=== PATIENT | male | born 1960 | race Caucasian/White ===

== ENCOUNTER 2021-11-05 22:58 | Inpatient (IN) | payer MEDICARE ==
[2021-11-06] MEDS ORDERED: Enoxaparin Sodium 100 MG/ML SYRINGE ONE (00:21)
[2021-11-06] MEDS ORDERED: Morphine 4 MG/ML VIAL ONE (00:21)
[2021-11-06] MEDS ORDERED: Ondansetron PF 4 MG/2 ML Vial ONE (00:21)
[2021-11-06] MEDS ORDERED: Cefepime 2 GM VIAL ONE (00:21)
[2021-11-06 00:43] LABS: #Basophils 0.1 10x3/uL (0.0-0.2); #Eosinphils 0.4 10x3/uL (0.0-0.5); #Monocytes 0.5 10x3/uL (0.0-1.1); #Neutrophils 6.3 10x3/uL (1.5-8.4); %Basophils 0.7 % (0.0-2.0); %Eosinophils 3.8 % (0.0-6.0); %Lymphocytes 20.1 % (18.0-47.0); %Monocytes 5.7 % (0.0-10.0); %Neutrophils 69.2 % (40.0-75.0); Hemoglobin 13.6 g/dL (13.5-17.5); Mean Corpuscular HGB CONC 34.8 g/dL (32.0-36.0); Mean Corpuscular Hemoglobin 30.6 pg (27.0-33.0); Mean Corpuscular Volume 87.9 fl (81.2-95.1); Mean Platelet Volume 8.3 fl (7.4-10.4); Platelet Count 364 10x3/uL (150-450); RBC Distribution Width 11.6 % (11.5-14.5); Red Blood Cell (RBC) Count 4.45 10x6/uL (4.32-5.72); White Blood Cell (WBC) Count 9.1 10x3/uL (3.5-10.5)
[2021-11-06] MEDS ORDERED: Fluconazole 100 MG TAB PO SCH (00:45)
[2021-11-06 00:54] LABS: ALT (SGPT) 21 U/L (8-55); AST (SGOT) 21 U/L (5-34); Albumin 4.1 g/dL (3.4-4.8); Alkaline Phosphatase 120 U/L (40-110); Anion Gap 14 mmol/L (10-20); BUN (Urea Nitrogen) 23 mg/dL (8.4-25.7); Bilirubin, Total 0.3 mg/dL (0.2-1.2); Calc. Creatinine Clearance 0 mL/min (70-130); Calcium 8.6 mg/dL (7.8-10.44); Carbon Dioxide 22 mmol/L (23-31); Chloride 101 mmol/L (98-107); Globulin 3.6 g/dL (2.4-3.5); Glucose 116 mg/dL (80-115); Potassium 3.7 mmol/L (3.5-5.1); Protein, Total 7.7 g/dL (5.8-8.1); Sodium 133 mmol/L (136-145)
[2021-11-06] MEDS ORDERED: Guaifenesin DM 100-10/5 ML UDCUP PO PRN (02:27)
[2021-11-06] MEDS ORDERED: Calcium Carbonate 500 MG ChewTAB PO PRN (02:27)
[2021-11-06] MEDS ORDERED: Ondansetron PF 4 MG/2 ML Vial IVP PRN (02:27)
[2021-11-06 03:08] VITALS: BMI 50.7
[2021-11-06] MEDS: HYDROcodone/Acetaminophen 10/325 mg Tablet PO PRN (03:18)
[2021-11-06] MEDS ORDERED: Morphine 4 MG/ML VIAL SLOW IVP SCH (04:00)
[2021-11-06 05:02] LABS: #Basophils 0.1 10x3/uL (0.0-0.2); #Eosinphils 0.4 10x3/uL (0.0-0.5); #Monocytes 0.7 10x3/uL (0.0-1.1); #Neutrophils 5.6 10x3/uL (1.5-8.4); %Basophils 0.5 % (0.0-2.0); %Eosinophils 4.7 % (0.0-6.0); %Lymphocytes 25.2 % (18.0-47.0); %Monocytes 7.6 % (0.0-10.0); %Neutrophils 61.5 % (40.0-75.0); Hemoglobin 12.8 g/dL (13.5-17.5); Mean Corpuscular Hemoglobin 29.4 pg (27.0-33.0); Mean Corpuscular Volume 89.2 fl (81.2-95.1); Mean Platelet Volume 8.4 fl (7.4-10.4); Platelet Count 357 10x3/uL (150-450); RBC Distribution Width 11.4 % (11.5-14.5); Red Blood Cell (RBC) Count 4.35 10x6/uL (4.32-5.72); White Blood Cell (WBC) Count 9.1 10x3/uL (3.5-10.5)
[2021-11-06 05:50] LABS: Anion Gap 13 mmol/L (10-20); BUN (Urea Nitrogen) 22 mg/dL (8.4-25.7); CRP (Inflammatory) 0.88 mg/dL (= or < 0.5); Calc. Creatinine Clearance 170 mL/min (70-130); Calcium 8.6 mg/dL (7.8-10.44); Carbon Dioxide 25 mmol/L (23-31); Chloride 102 mmol/L (98-107); Glucose 89 mg/dL (80-115); Potassium 4.1 mmol/L (3.5-5.1); Sodium 136 mmol/L (136-145)
[2021-11-06] MEDS: Senokot S 8.6-50 MG TAB PO SCH ×2 (07:52→20:23)
[2021-11-06] MEDS: Gabapentin 400 MG CAP PO SCH ×3 (07:53→20:22)
[2021-11-06] MEDS: Tamsulosin HCl 0.4 MG CAP PO SCH (07:54)
[2021-11-06] MEDS: Oxybutynin 5 MG TAB PO SCH (07:54)
[2021-11-06] MEDS: Torsemide 20 MG TAB PO SCH (07:56)
[2021-11-06] MEDS: Lisinopril 10 MG TAB PO SCH (07:56)
[2021-11-06] MEDS: Amlodipine 5 MG TAB PO SCH (07:56)
[2021-11-06] MEDS: Nystatin Powder 15 GM BOT TOP SCH ×2 (08:28→20:25)
[2021-11-06] MEDS: Morphine 4 MG/ML VIAL SLOW IVP PRN ×2 (10:56→16:51)
[2021-11-06] MEDS: hydrOXYzine 25 MG TAB PO PRN ×2 (10:56→20:23)
[2021-11-06] MEDS: Apixaban 5 MG TAB PO SCH (12:14)
[2021-11-06] MEDS: Cefepime 1 GM in Sodium Chloride 0.9% 100 ML IVPB SCH (12:14)
[2021-11-06 12:25] LABS: Hemoglobin A1c 5.1 % (4.0-6.0)
[2021-11-06] MEDS: VANCOMYCIN 2 GRAM/400 ML BAG 2 GM in Premix Bag 1 BAG IVPB SCH (13:10)
[2021-11-06 19:01] LABS: SARS-CoV-2 PCR by NAA Not Detected (NotDetected)
[2021-11-07] MEDS: Apixaban 5 MG TAB PO SCH ×2 (00:01→13:07)
[2021-11-07] MEDS: Morphine 4 MG/ML VIAL SLOW IVP PRN ×2 (00:01→21:02)
[2021-11-07] MEDS: Cefepime 1 GM in Sodium Chloride 0.9% 100 ML IVPB SCH ×3 (00:02→13:35)
[2021-11-07] MEDS: HYDROcodone/Acetaminophen 10/325 mg Tablet PO PRN ×3 (01:08→14:45)
[2021-11-07] MEDS: VANCOMYCIN 2 GRAM/400 ML BAG 2 GM in Premix Bag 1 BAG IVPB SCH ×2 (01:09→13:07)
[2021-11-07 04:15] LABS: Anion Gap 13 mmol/L (10-20); BUN (Urea Nitrogen) 18 mg/dL (8.4-25.7); Calc. Creatinine Clearance 131 mL/min (70-130); Calcium 8.5 mg/dL (7.8-10.44); Carbon Dioxide 24 mmol/L (23-31); Chloride 104 mmol/L (98-107); Glucose 117 mg/dL (80-115); Sodium 137 mmol/L (136-145)
[2021-11-07 04:30] LABS: #Eosinphils 0.3 10x3/uL (0.0-0.5); #Monocytes 0.6 10x3/uL (0.0-1.1); #Neutrophils 3.8 10x3/uL (1.5-8.4); %Basophils 0.5 % (0.0-2.0); %Eosinophils 4.6 % (0.0-6.0); %Lymphocytes 26.2 % (18.0-47.0); %Monocytes 9.1 % (0.0-10.0); %Neutrophils 59.1 % (40.0-75.0); Hemoglobin 13.3 g/dL (13.5-17.5); Mean Corpuscular HGB CONC 34.4 g/dL (32.0-36.0); Mean Corpuscular Hemoglobin 30.6 pg (27.0-33.0); Mean Corpuscular Volume 89.2 fl (81.2-95.1); Mean Platelet Volume 8.4 fl (7.4-10.4); Platelet Count 345 10x3/uL (150-450); RBC Distribution Width 11.6 % (11.5-14.5); Red Blood Cell (RBC) Count 4.34 10x6/uL (4.32-5.72); White Blood Cell (WBC) Count 6.4 10x3/uL (3.5-10.5)
[2021-11-07] MEDS: Oxybutynin 5 MG TAB PO SCH (08:26)
[2021-11-07] MEDS: Senokot S 8.6-50 MG TAB PO SCH ×2 (08:27→20:55)
[2021-11-07] MEDS: Tamsulosin HCl 0.4 MG CAP PO SCH (08:27)
[2021-11-07] MEDS: Nystatin Powder 15 GM BOT TOP SCH ×2 (08:27→20:55)
[2021-11-07] MEDS: Gabapentin 400 MG CAP PO SCH ×3 (08:37→20:51)
[2021-11-07] MEDS: Amlodipine 5 MG TAB PO SCH (08:37)
[2021-11-07] MEDS: Lisinopril 10 MG TAB PO SCH (08:38)
[2021-11-07] MEDS ORDERED: FLU VACC QS2021-22(6MOS UP)/PF 60 MCG/0.5 ML SYRINGE IM ONE (09:00)
[2021-11-07] MEDS: Torsemide 20 MG TAB PO SCH (10:38)
[2021-11-07] MEDS: Cefepime 2 GM in Sodium Chloride 0.9% 100 ML IVPB SCH (13:33)
[2021-11-08] MEDS: Cefepime 2 GM in Sodium Chloride 0.9% 100 ML IVPB SCH ×2 (01:22→13:09)
[2021-11-08] MEDS: VANCOMYCIN 2 GRAM/400 ML BAG 2 GM in Premix Bag 1 BAG IVPB SCH (01:23)
[2021-11-08] MEDS: Apixaban 5 MG TAB PO SCH ×2 (01:23→13:11)
[2021-11-08 01:26] LABS: Vancomycin, Trough 33.6 ug/mL
[2021-11-08 05:49] LABS: #Basophils 0.1 10x3/uL (0.0-0.2); #Eosinphils 0.5 10x3/uL (0.0-0.5); #Monocytes 0.8 10x3/uL (0.0-1.1); #Neutrophils 5.9 10x3/uL (1.5-8.4); %Basophils 0.7 % (0.0-2.0); %Lymphocytes 20.2 % (18.0-47.0); %Monocytes 8.4 % (0.0-10.0); %Neutrophils 65.3 % (40.0-75.0); Hemoglobin 14.2 g/dL (13.5-17.5); Mean Corpuscular Hemoglobin 30.8 pg (27.0-33.0); Mean Corpuscular Volume 88.1 fl (81.2-95.1); Mean Platelet Volume 8.2 fl (7.4-10.4); Platelet Count 352 10x3/uL (150-450); RBC Distribution Width 11.7 % (11.5-14.5); Red Blood Cell (RBC) Count 4.61 10x6/uL (4.32-5.72); White Blood Cell (WBC) Count 9.1 10x3/uL (3.5-10.5)
[2021-11-08 06:05] LABS: Anion Gap 11 mmol/L (10-20); BUN (Urea Nitrogen) 19 mg/dL (8.4-25.7); Calc. Creatinine Clearance 154 mL/min (70-130); Calcium 8.8 mg/dL (7.8-10.44); Carbon Dioxide 25 mmol/L (23-31); Chloride 106 mmol/L (98-107); Glucose 95 mg/dL (80-115); Phosphorus 2.6 mg/dL (2.3-4.7); Sodium 138 mmol/L (136-145)
[2021-11-08] MEDS: Oxybutynin 5 MG TAB PO SCH (08:47)
[2021-11-08] MEDS: Torsemide 20 MG TAB PO SCH (08:47)
[2021-11-08] MEDS: Amlodipine 5 MG TAB PO SCH (08:48)
[2021-11-08] MEDS: Tamsulosin HCl 0.4 MG CAP PO SCH (08:49)
[2021-11-08] MEDS: Lisinopril 10 MG TAB PO SCH (08:50)
[2021-11-08] MEDS: Senokot S 8.6-50 MG TAB PO SCH ×2 (08:50→20:13)
[2021-11-08] MEDS: Gabapentin 400 MG CAP PO SCH ×3 (08:51→20:13)
[2021-11-08] MEDS: Nystatin Powder 15 GM BOT TOP SCH ×2 (08:52→20:15)
[2021-11-08] MEDS: HYDROcodone/Acetaminophen 10/325 mg Tablet PO PRN ×2 (08:58→14:56)
[2021-11-08] MEDS ORDERED: ADMIXTURE FEE IVPB SCH (10:15)
[2021-11-08] MEDS ORDERED: VANCOMYCIN IVPB SCH (10:15)
[2021-11-08] MEDS: Morphine 4 MG/ML VIAL SLOW IVP PRN (18:03)
[2021-11-09] MEDS: Morphine 4 MG/ML VIAL SLOW IVP PRN ×4 (00:05→22:07)
[2021-11-09] MEDS: Apixaban 5 MG TAB PO SCH ×2 (00:24→13:46)
[2021-11-09] MEDS: ceFAZolin 2 GM/Dextrose 50 ML 2 GM in Premix Bag 1 BAG IVPB SCH ×3 (00:25→16:06)
[2021-11-09] MEDS: hydrOXYzine 25 MG TAB PO PRN (03:25)
[2021-11-09] MEDS: Oxybutynin 5 MG TAB PO SCH (09:31)
[2021-11-09] MEDS: Lisinopril 10 MG TAB PO SCH (09:31)
[2021-11-09] MEDS: Tamsulosin HCl 0.4 MG CAP PO SCH (09:32)
[2021-11-09] MEDS: Torsemide 20 MG TAB PO SCH (09:32)
[2021-11-09] MEDS: Senokot S 8.6-50 MG TAB PO SCH ×2 (09:33→20:44)
[2021-11-09] MEDS: Amlodipine 5 MG TAB PO SCH (09:33)
[2021-11-09] MEDS: Gabapentin 400 MG CAP PO SCH ×3 (09:34→20:36)
[2021-11-09] MEDS: Nystatin Powder 15 GM BOT TOP SCH ×2 (16:23→20:36)
[2021-11-10] MEDS: Apixaban 5 MG TAB PO SCH ×2 (01:17→14:10)
[2021-11-10] MEDS: ceFAZolin 2 GM/Dextrose 50 ML 2 GM in Premix Bag 1 BAG IVPB SCH ×2 (01:18→09:40)
[2021-11-10] MEDS: hydrOXYzine 25 MG TAB PO PRN ×2 (01:25→10:03)
[2021-11-10] MEDS: Morphine 4 MG/ML VIAL SLOW IVP PRN (09:35)
[2021-11-10] MEDS: Gabapentin 400 MG CAP PO SCH ×2 (09:36→14:09)
[2021-11-10] MEDS: Amlodipine 5 MG TAB PO SCH (09:37)
[2021-11-10] MEDS: Lisinopril 10 MG TAB PO SCH (09:37)
[2021-11-10] MEDS: Oxybutynin 5 MG TAB PO SCH (09:39)
[2021-11-10] MEDS: Senokot S 8.6-50 MG TAB PO SCH (09:39)
[2021-11-10] MEDS: Torsemide 20 MG TAB PO SCH (09:40)
[2021-11-10] MEDS: Nystatin Powder 15 GM BOT TOP SCH (09:40)
[2021-11-10] MEDS: Tamsulosin HCl 0.4 MG CAP PO SCH (10:03)
[2021-11-10 16:32] VITALS: BP 115/65; TEMP 97.9
[2021-11-14] MEDS ORDERED: Apixaban 5 MG TAB PO SCH (09:00)
== END 2021-11-10 18:18 | disposition home or self-care (01) | DRG 300 ==
LOC: CSHERS 22:58 → OBSVTOIN 11-06 03:00 → CSHTELE 11-06 03:00
PROVIDERS: ADMIT Student in an Organized Health Care Education/Training Program; ATTEND Family Medicine
DX: I82.403 Acute embolism and thrombosis of unspecified deep veins of lower extremity, bilateral (principal); L03.115 Cellulitis of right lower limb; I48.20 Chronic atrial fibrillation, unspecified; Z68.43 Body mass index [BMI] 50.0-59.9, adult; Z20.822 Contact with and (suspected) exposure to COVID-19; I10 Essential (primary) hypertension; G89.0 Central pain syndrome; N40.0 Benign prostatic hyperplasia without lower urinary tract symptoms; N32.81 Overactive bladder; G47.33 Obstructive sleep apnea (adult) (pediatric); I89.0 Lymphedema, not elsewhere classified; I87.2 Venous insufficiency (chronic) (peripheral); E66.01 Morbid (severe) obesity due to excess calories; Z88.8 Allergy status to other drugs, medicaments and biological substances; Z79.01 Long term (current) use of anticoagulants; Z79.899 Other long term (current) drug therapy; Z98.890 Other specified postprocedural states; Z87.39 Personal history of other diseases of the musculoskeletal system and connective tissue
CPT/HCPCS: 36415; 36416; 80048; 80053; 80202; 83036; 83605; 83735; 84100; 84145; 85025; 85652; 86140; 87040; 87081; 93923; 96365; 96368; 96372; 96375; J0690; J0692; J1650; J2270; J2405; J3370; J3490; U0003; U0005

== ENCOUNTER 2022-01-16 21:40 | Inpatient (IN) | payer MEDICARE, OTHER ==
[2022-01-16 22:33] LABS: #Eosinphils 0.1 10x3/uL (0.0-0.5); #Monocytes 0.6 10x3/uL (0.0-1.1); #Neutrophils 11.7 10x3/uL (1.5-8.4); %Basophils 0.3 % (0.0-2.0); %Eosinophils 0.5 % (0.0-6.0); %Lymphocytes 4.6 % (18.0-47.0); %Monocytes 4.7 % (0.0-10.0); %Neutrophils 89.4 % (40.0-75.0); Hemoglobin 12.4 g/dL (13.5-17.5); Mean Corpuscular HGB CONC 33.1 g/dL (32.0-36.0); Mean Corpuscular Volume 90.8 fl (81.2-95.1); Mean Platelet Volume 8.3 fl (7.4-10.4); Platelet Count 285 10x3/uL (150-450); Red Blood Cell (RBC) Count 4.13 10x6/uL (4.32-5.72); White Blood Cell (WBC) Count 13.1 10x3/uL (3.5-10.5)
[2022-01-16 22:54] LABS: ALT (SGPT) 8 U/L (8-55); AST (SGOT) 14 U/L (5-34); Albumin 4.3 g/dL (3.4-4.8); Alkaline Phosphatase 101 U/L (40-110); Anion Gap 13 mmol/L (10-20); BUN (Urea Nitrogen) 22 mg/dL (8.4-25.7); Bilirubin, Total 0.8 mg/dL (0.2-1.2); Calc. Creatinine Clearance 0 mL/min (70-130); Carbon Dioxide 21 mmol/L (23-31); Chloride 109 mmol/L (98-107); Glucose 109 mg/dL (80-115); Lipase 9 U/L (8-78); Magnesium 1.8 mg/dL (1.6-2.6); Potassium 4.5 mmol/L (3.5-5.1); Protein, Total 7.3 g/dL (5.8-8.1); Sodium 138 mmol/L (136-145)
[2022-01-16] MEDS ORDERED: Ondansetron PF 4 MG/2 ML Vial ONE (23:52)
[2022-01-16] MEDS ORDERED: Piperacillin/Tazobactam 3.375 GM VIAL ONE (23:52)
[2022-01-16] MEDS ORDERED: Morphine 4 MG/ML VIAL ONE (23:52)
[2022-01-17] MEDS ORDERED: Enoxaparin Sodium 60 MG/0.6 ML SYRINGE ONE (00:14)
[2022-01-17] MEDS ORDERED: Acetaminophen 500 MG TAB ONE (00:16)
[2022-01-17 00:36] LABS: SARS-CoV-2 NAA Rapid Test Not Detected (NotDetected)
[2022-01-17 00:47] LABS: Bilirubin Neg (Negative); Blood, Urine 50 (Negative); Clarity Clear (Clear); Glucose, Urine (Dipstick) Normal (Negative); Ketone, Urine Negative (Negative); Leukocyte Negative (Negative); Nitrite Negative (Negative); Protein, Urine (Dipstick) Negative (Neg-Trace); Specific Gravity, Urine 1.015 (1.002-1.036); Urobilinogen Normal mg/dL (Less than 2)
[2022-01-17 00:53] LABS: Bacteria/HPF Rare-Few HPF (None Seen); Squamous Epithelial 0-3 HPF (0-3)
[2022-01-17] MEDS ORDERED: Morphine 4 MG/ML VIAL ONE (03:13)
[2022-01-17] MEDS ORDERED: Senokot S 8.6-50 MG TAB PO PRN (05:07)
[2022-01-17] MEDS ORDERED: Calcium Carbonate 500 MG ChewTAB PO PRN (05:07)
[2022-01-17] MEDS ORDERED: Guaifenesin DM 100-10/5 ML UDCUP PO PRN (05:07)
[2022-01-17] MEDS ORDERED: HYDROcodone/Acetaminophen 5/325 mg Tablet PO PRN (05:07)
[2022-01-17] MEDS ORDERED: Ondansetron PF 4 MG/2 ML Vial IVP PRN (05:07)
[2022-01-17] MEDS: Doxycycline 100 MG in Sodium Chloride 0.9% 100 ML IVPB SCH (06:30)
[2022-01-17 06:48] VITALS: BMI 53.5
[2022-01-17 07:01] LABS: CKMB 9.5 ng/mL (0-6.6)
[2022-01-17] MEDS ORDERED: Cefepime 2 GM VIAL ONE (08:50)
[2022-01-17] MEDS: Amlodipine 10 MG TAB PO SCH (08:57)
[2022-01-17] MEDS: Lisinopril 10 MG TAB PO SCH (08:58)
[2022-01-17] MEDS: Gabapentin 400 MG CAP PO SCH ×3 (08:59→20:29)
[2022-01-17] MEDS: Famotidine 20 MG TAB PO SCH ×2 (09:00→20:29)
[2022-01-17] MEDS: Oxybutynin 5 MG TAB PO SCH ×2 (09:01→20:29)
[2022-01-17] MEDS: Torsemide 20 MG TAB PO SCH (09:01)
[2022-01-17] MEDS: Nystatin Powder 15 GM BOT TOP SCH ×2 (09:02→20:37)
[2022-01-17] MEDS: Cefepime 2 GM in Sodium Chloride 0.9% 100 ML IVPB SCH ×2 (09:21→20:30)
[2022-01-17] MEDS: Linezolid 600 MG in Premix Bag 1 BAG IVPB SCH ×2 (09:21→20:37)
[2022-01-17] MEDS ORDERED: Iopamidol 370 76% 100 ML VIAL ONE (09:34)
[2022-01-17] MEDS ORDERED: HYDROmorphone 2 MG TAB PO SCH (11:15)
[2022-01-17 12:48] LABS: Legionella Urinary Ag Negative (Negative); Strep pneumo Urine Ag NEGATIVE (NEGATIVE)
[2022-01-17] MEDS: Morphine 4 MG/ML VIAL SLOW IVP PRN ×3 (15:17→23:42)
[2022-01-17] MEDS: Enoxaparin Sodium 80 MG/0.8 ML SYRINGE SC SCH (15:18)
[2022-01-17] MEDS ORDERED: TIZANIDINE HCL PO PRN ×2 (16:04→16:13)
[2022-01-17] MEDS: Acetaminophen 325 MG TAB PO PRN (16:20)
[2022-01-17] MEDS ORDERED: TIZANIDINE HCL 4 MG PO SCH (18:00)
[2022-01-17] MEDS: Tamsulosin HCl 0.4 MG CAP PO SCH (20:30)
[2022-01-17] MEDS ORDERED: Metoprolol Tartrate 25 MG TAB PO SCH (21:00)
[2022-01-18] MEDS: Acetaminophen 325 MG TAB PO PRN ×2 (01:19→09:48)
[2022-01-18] MEDS: Enoxaparin Sodium 80 MG/0.8 ML SYRINGE SC SCH ×2 (03:18→14:05)
[2022-01-18] MEDS: Morphine 4 MG/ML VIAL SLOW IVP PRN ×5 (04:17→21:43)
[2022-01-18 05:16] LABS: INR-International Normal Ratio 1.2; PTT 54.4 sec (22.0-33.0)
[2022-01-18 05:20] LABS: ALT (SGPT) 15 U/L (8-55); AST (SGOT) 31 U/L (5-34); Albumin 3.5 g/dL (3.4-4.8); Alkaline Phosphatase 73 U/L (40-110); Anion Gap 14 mmol/L (10-20); BUN (Urea Nitrogen) 13 mg/dL (8.4-25.7); Bilirubin, Direct 0.5 mg/dL (0.1-0.3); Bilirubin, Total 0.8 mg/dL (0.2-1.2); Calc. Creatinine Clearance 148 mL/min (70-130); Calcium 8.5 mg/dL (7.8-10.44); Carbon Dioxide 21 mmol/L (23-31); Cardiac Risk 2.5 (Less than 4.5); Chloride 105 mmol/L (98-107); Cholesterol 97 mg/dl (< 200 Desired); Glucose 103 mg/dL (80-115); HDL Cholesterol 39 mg/dL (>60 Neg Risk); LDL Cholesterol, Calculated 46 mg/dL; Magnesium 1.6 mg/dL (1.6-2.6); Potassium 3.4 mmol/L (3.5-5.1); Protein, Total 6.5 g/dL (5.8-8.1); Sodium 137 mmol/L (136-145); Triglycerides 62 mg/dL (Less than 150)
[2022-01-18 06:03] LABS: #Eosinphils 0.1 10x3/uL (0.0-0.5); #Monocytes 0.8 10x3/uL (0.0-1.1); #Neutrophils 6.8 10x3/uL (1.5-8.4); %Basophils 0.4 % (0.0-2.0); %Eosinophils 1.3 % (0.0-6.0); %Lymphocytes 12.9 % (18.0-47.0); %Monocytes 8.4 % (0.0-10.0); %Neutrophils 76.6 % (40.0-75.0); Hemoglobin 11.7 g/dL (13.5-17.5); Mean Corpuscular HGB CONC 34.6 g/dL (32.0-36.0); Mean Corpuscular Hemoglobin 29.8 pg (27.0-33.0); Mean Platelet Volume 8.6 fl (7.4-10.4); Platelet Count 228 10x3/uL (150-450); RBC Distribution Width 12.7 % (11.5-14.5); Red Blood Cell (RBC) Count 3.93 10x6/uL (4.32-5.72); White Blood Cell (WBC) Count 8.9 10x3/uL (3.5-10.5)
[2022-01-18] MEDS ORDERED: Potassium Chloride 20 MEQ TAB PO SCH (07:30)
[2022-01-18] MEDS: Amlodipine 10 MG TAB PO SCH (09:45)
[2022-01-18] MEDS: Cefepime 2 GM in Sodium Chloride 0.9% 100 ML IVPB SCH ×2 (09:45→21:37)
[2022-01-18] MEDS: Linezolid 600 MG in Premix Bag 1 BAG IVPB SCH ×2 (09:46→21:45)
[2022-01-18] MEDS: Gabapentin 400 MG CAP PO SCH ×3 (09:46→21:44)
[2022-01-18] MEDS: Famotidine 20 MG TAB PO SCH ×2 (09:46→21:45)
[2022-01-18] MEDS: Lisinopril 10 MG TAB PO SCH (09:47)
[2022-01-18] MEDS: Torsemide 20 MG TAB PO SCH (09:47)
[2022-01-18] MEDS: Nystatin Powder 15 GM BOT TOP SCH ×2 (09:47→21:51)
[2022-01-18] MEDS: Oxybutynin 5 MG TAB PO SCH ×2 (09:47→21:44)
[2022-01-18] MEDS ORDERED: HYDROmorphone 0.5 MG/0.5 ML SYRINGE SLOW IVP PRN (12:42)
[2022-01-18] MEDS: Tamsulosin HCl 0.4 MG CAP PO SCH (21:44)
[2022-01-18] MEDS: HYDROcodone/Acetaminophen 10/325 mg Tablet PO PRN (22:54)
[2022-01-19] MEDS: Acetaminophen 325 MG TAB PO PRN ×3 (00:39→18:10)
[2022-01-19] MEDS: Morphine 4 MG/ML VIAL SLOW IVP PRN ×6 (02:11→22:37)
[2022-01-19] MEDS: HYDROcodone/Acetaminophen 10/325 mg Tablet PO PRN ×4 (03:07→21:00)
[2022-01-19] MEDS: Enoxaparin Sodium 80 MG/0.8 ML SYRINGE SC SCH ×2 (03:13→14:46)
[2022-01-19 05:28] LABS: #Eosinphils 0.2 10x3/uL (0.0-0.5); #Neutrophils 7.1 10x3/uL (1.5-8.4); %Basophils 0.4 % (0.0-2.0); %Eosinophils 2.4 % (0.0-6.0); %Lymphocytes 14.3 % (18.0-47.0); %Monocytes 9.9 % (0.0-10.0); %Neutrophils 72.6 % (40.0-75.0); Hemoglobin 12.3 g/dL (13.5-17.5); Mean Corpuscular HGB CONC 35.3 g/dL (32.0-36.0); Mean Corpuscular Hemoglobin 29.9 pg (27.0-33.0); Mean Corpuscular Volume 84.5 fl (81.2-95.1); Mean Platelet Volume 8.9 fl (7.4-10.4); Platelet Count 244 10x3/uL (150-450); RBC Distribution Width 12.6 % (11.5-14.5); Red Blood Cell (RBC) Count 4.12 10x6/uL (4.32-5.72); White Blood Cell (WBC) Count 9.8 10x3/uL (3.5-10.5)
[2022-01-19 05:36] LABS: Anion Gap 14 mmol/L (10-20); BUN (Urea Nitrogen) 14 mg/dL (8.4-25.7); Calc. Creatinine Clearance 162 mL/min (70-130); Calcium 8.5 mg/dL (7.8-10.44); Carbon Dioxide 25 mmol/L (23-31); Chloride 99 mmol/L (98-107); Glucose 101 mg/dL (80-115); Magnesium 1.7 mg/dL (1.6-2.6); Potassium 3.3 mmol/L (3.5-5.1); Sodium 135 mmol/L (136-145)
[2022-01-19] MEDS ORDERED: Potassium Chloride 40 MEQ in Premix Bag 1 BAG IVPB SCH (07:15)
[2022-01-19] MEDS ORDERED: Potassium Chloride 20 MEQ in Premix Bag 1 BAG IVPB SCH (08:00)
[2022-01-19] MEDS ORDERED: Potassium Chloride 20 MEQ TAB PO SCH (08:00)
[2022-01-19] MEDS: Magnesium 2 GM/50 ML(in water) 2 GM in Premix Bag 1 BAG IVPB SCH ×2 (08:24→09:50)
[2022-01-19] MEDS: Gabapentin 400 MG CAP PO SCH ×3 (08:25→20:27)
[2022-01-19] MEDS: Cefepime 2 GM in Sodium Chloride 0.9% 100 ML IVPB SCH ×2 (08:25→20:28)
[2022-01-19] MEDS: Amlodipine 10 MG TAB PO SCH (08:25)
[2022-01-19] MEDS: Famotidine 20 MG TAB PO SCH ×2 (08:25→20:28)
[2022-01-19] MEDS: Oxybutynin 5 MG TAB PO SCH ×2 (08:27→20:28)
[2022-01-19] MEDS: Lisinopril 10 MG TAB PO SCH (08:27)
[2022-01-19] MEDS: Torsemide 20 MG TAB PO SCH (08:35)
[2022-01-19] MEDS: Linezolid 600 MG in Premix Bag 1 BAG IVPB SCH ×2 (09:50→20:28)
[2022-01-19 12:31] LABS: Troponin I 0.011 ng/mL (< 0.028)
[2022-01-19 12:38] LABS: Puncture Site Other Site; pH (venous) 7.46 (7.32-7.43)
[2022-01-19 12:39] LABS: Actual Bicarbonate (HCO3v) 29 mEq/L (22-28); Base Excess 4.4 mEq/L (-2.0 to +3.0); Calcium, Ionized (venous) 1.03 mmol/L (1.16-1.32); Chloride (VBG) 97 mmol/L (98-106); Potassium (VBG) 3.47 mmol/L (3.70-5.30); RapidComm Collect By CBN; Sodium 131.6 mmol/L (133-146)
[2022-01-19] MEDS: Nystatin Powder 15 GM BOT TOP SCH ×2 (13:27→20:31)
[2022-01-19] MEDS: Tamsulosin HCl 0.4 MG CAP PO SCH (20:27)
[2022-01-20] MEDS: Morphine 4 MG/ML VIAL SLOW IVP PRN ×3 (03:28→15:19)
[2022-01-20] MEDS: Enoxaparin Sodium 80 MG/0.8 ML SYRINGE SC SCH ×2 (03:46→15:19)
[2022-01-20 04:44] LABS: #Basophils 0.1 10x3/uL (0.0-0.2); #Eosinphils 0.3 10x3/uL (0.0-0.5); #Monocytes 0.9 10x3/uL (0.0-1.1); #Neutrophils 4.9 10x3/uL (1.5-8.4); %Basophils 0.7 % (0.0-2.0); %Eosinophils 3.8 % (0.0-6.0); %Lymphocytes 16.8 % (18.0-47.0); %Monocytes 11.7 % (0.0-10.0); %Neutrophils 66.7 % (40.0-75.0); Hemoglobin 12.4 g/dL (13.5-17.5); Mean Corpuscular HGB CONC 35.1 g/dL (32.0-36.0); Mean Corpuscular Hemoglobin 29.7 pg (27.0-33.0); Mean Corpuscular Volume 84.4 fl (81.2-95.1); Mean Platelet Volume 8.8 fl (7.4-10.4); Platelet Count 256 10x3/uL (150-450); RBC Distribution Width 12.4 % (11.5-14.5); Red Blood Cell (RBC) Count 4.18 10x6/uL (4.32-5.72); White Blood Cell (WBC) Count 7.4 10x3/uL (3.5-10.5)
[2022-01-20 05:05] LABS: Anion Gap 16 mmol/L (10-20); BUN (Urea Nitrogen) 14 mg/dL (8.4-25.7); CK (CPK) 102 U/L (30-200); Calc. Creatinine Clearance 179 mL/min (70-130); Calcium 8.5 mg/dL (7.8-10.44); Carbon Dioxide 28 mmol/L (23-31); Chloride 95 mmol/L (98-107); Glucose 93 mg/dL (80-115); Magnesium 2.4 mg/dL (1.6-2.6); Potassium 3.5 mmol/L (3.5-5.1); Sodium 135 mmol/L (136-145)
[2022-01-20] MEDS: Amlodipine 10 MG TAB PO SCH (09:20)
[2022-01-20] MEDS: Cefepime 2 GM in Sodium Chloride 0.9% 100 ML IVPB SCH ×2 (09:20→20:21)
[2022-01-20] MEDS: Gabapentin 400 MG CAP PO SCH ×2 (09:20→20:22)
[2022-01-20] MEDS: Famotidine 20 MG TAB PO SCH ×2 (09:20→20:24)
[2022-01-20] MEDS: Oxybutynin 5 MG TAB PO SCH ×2 (09:21→20:24)
[2022-01-20] MEDS: Lisinopril 10 MG TAB PO SCH (09:21)
[2022-01-20] MEDS: Nystatin Powder 15 GM BOT TOP SCH ×2 (09:23→20:25)
[2022-01-20] MEDS: Linezolid 600 MG in Premix Bag 1 BAG IVPB SCH (11:52)
[2022-01-20] MEDS: Torsemide 20 MG TAB PO SCH (11:55)
[2022-01-20] MEDS ORDERED: Gabapentin 400 MG CAP PO SCH (15:30)
[2022-01-20] MEDS: Tamsulosin HCl 0.4 MG CAP PO SCH (20:22)
[2022-01-20] MEDS: HYDROcodone/Acetaminophen 10/325 mg Tablet PO PRN (20:24)
[2022-01-21] MEDS: HYDROcodone/Acetaminophen 10/325 mg Tablet PO PRN ×5 (01:15→20:34)
[2022-01-21] MEDS: Enoxaparin Sodium 80 MG/0.8 ML SYRINGE SC SCH ×2 (02:40→15:09)
[2022-01-21 06:39] LABS: #Basophils 0.1 10x3/uL (0.0-0.2); #Eosinphils 0.4 10x3/uL (0.0-0.5); #Monocytes 0.6 10x3/uL (0.0-1.1); #Neutrophils 3.2 10x3/uL (1.5-8.4); %Eosinophils 6.1 % (0.0-6.0); %Lymphocytes 30.6 % (18.0-47.0); %Monocytes 9.8 % (0.0-10.0); Hemoglobin 13.5 g/dL (13.5-17.5); Mean Corpuscular HGB CONC 35.2 g/dL (32.0-36.0); Mean Corpuscular Hemoglobin 29.3 pg (27.0-33.0); Mean Corpuscular Volume 83.3 fl (81.2-95.1); Mean Platelet Volume 8.8 fl (7.4-10.4); Platelet Count 306 10x3/uL (150-450); RBC Distribution Width 12.3 % (11.5-14.5); Red Blood Cell (RBC) Count 4.61 10x6/uL (4.32-5.72); White Blood Cell (WBC) Count 6.1 10x3/uL (3.5-10.5)
[2022-01-21 06:51] LABS: Anion Gap 16 mmol/L (10-20); BUN (Urea Nitrogen) 17 mg/dL (8.4-25.7); Calc. Creatinine Clearance 185 mL/min (70-130); Calcium 8.8 mg/dL (7.8-10.44); Carbon Dioxide 28 mmol/L (23-31); Chloride 96 mmol/L (98-107); Glucose 130 mg/dL (80-115); Magnesium 2.4 mg/dL (1.6-2.6); Potassium 3.1 mmol/L (3.5-5.1); Sodium 137 mmol/L (136-145)
[2022-01-21] MEDS ORDERED: Potassium Chloride 20 MEQ TAB PO SCH ×2 (07:30→18:00)
[2022-01-21] MEDS ORDERED: Potassium Chloride 20 MEQ in Premix Bag 1 BAG IVPB SCH (08:00)
[2022-01-21] MEDS: Cefepime 2 GM in Sodium Chloride 0.9% 100 ML IVPB SCH (08:25)
[2022-01-21] MEDS: Amlodipine 10 MG TAB PO SCH (08:25)
[2022-01-21] MEDS: Famotidine 20 MG TAB PO SCH ×2 (08:25→20:34)
[2022-01-21] MEDS: Gabapentin 400 MG CAP PO SCH ×3 (08:26→20:33)
[2022-01-21] MEDS: Lisinopril 10 MG TAB PO SCH (08:26)
[2022-01-21] MEDS: Nystatin Powder 15 GM BOT TOP SCH ×2 (08:27→22:41)
[2022-01-21] MEDS: Oxybutynin 5 MG TAB PO SCH ×2 (08:27→20:34)
[2022-01-21] MEDS: Torsemide 20 MG TAB PO SCH (08:27)
[2022-01-21] MEDS ORDERED: Iopamidol 300 61% 100 ML VIAL FS ONE (09:47)
[2022-01-21] MEDS ORDERED: HYDROmorphone 0.5 MG/0.5 ML SYRINGE SLOW IVP SCH (11:15)
[2022-01-21] MEDS: Benzocaine (Dental) 20% Gel 30GM Jar TOP SCH ×3 (13:59→20:38)
[2022-01-21] MEDS: Amoxicillin/Potassium Clav 875 MG TAB PO SCH (20:32)
[2022-01-21] MEDS: Tamsulosin HCl 0.4 MG CAP PO SCH (20:33)
[2022-01-22] MEDS: Enoxaparin Sodium 80 MG/0.8 ML SYRINGE SC SCH ×2 (04:32→14:49)
[2022-01-22 05:24] LABS: #Basophils 0.1 10x3/uL (0.0-0.2); #Eosinphils 0.5 10x3/uL (0.0-0.5); #Monocytes 0.6 10x3/uL (0.0-1.1); #Neutrophils 4.6 10x3/uL (1.5-8.4); %Basophils 0.9 % (0.0-2.0); %Lymphocytes 23.6 % (18.0-47.0); Hemoglobin 13.6 g/dL (13.5-17.5); Mean Corpuscular HGB CONC 35.7 g/dL (32.0-36.0); Mean Corpuscular Hemoglobin 29.8 pg (27.0-33.0); Mean Corpuscular Volume 83.6 fl (81.2-95.1); Mean Platelet Volume 8.7 fl (7.4-10.4); Platelet Count 319 10x3/uL (150-450); RBC Distribution Width 12.3 % (11.5-14.5); Red Blood Cell (RBC) Count 4.56 10x6/uL (4.32-5.72); White Blood Cell (WBC) Count 7.7 10x3/uL (3.5-10.5)
[2022-01-22 05:50] LABS: Anion Gap 18 mmol/L (10-20); BUN (Urea Nitrogen) 18 mg/dL (8.4-25.7); Calc. Creatinine Clearance 181 mL/min (70-130); Calcium 8.8 mg/dL (7.8-10.44); Carbon Dioxide 26 mmol/L (23-31); Chloride 97 mmol/L (98-107); Glucose 90 mg/dL (80-115); Magnesium 2.3 mg/dL (1.6-2.6); Potassium 3.5 mmol/L (3.5-5.1); Sodium 137 mmol/L (136-145)
[2022-01-22] MEDS: Amlodipine 10 MG TAB PO SCH (10:00)
[2022-01-22] MEDS: Amoxicillin/Potassium Clav 875 MG TAB PO SCH (10:00)
[2022-01-22] MEDS: Famotidine 20 MG TAB PO SCH (10:01)
[2022-01-22] MEDS: Benzocaine (Dental) 20% Gel 30GM Jar TOP SCH ×2 (10:01→14:49)
[2022-01-22] MEDS: Gabapentin 400 MG CAP PO SCH ×2 (10:01→14:50)
[2022-01-22] MEDS: Nystatin Powder 15 GM BOT TOP SCH (10:02)
[2022-01-22] MEDS: Lisinopril 10 MG TAB PO SCH (10:02)
[2022-01-22] MEDS: HYDROcodone/Acetaminophen 10/325 mg Tablet PO PRN (10:03)
[2022-01-22] MEDS: Torsemide 20 MG TAB PO SCH (10:03)
[2022-01-22] MEDS: Oxybutynin 5 MG TAB PO SCH (10:03)
[2022-01-22 13:55] VITALS: BP 132/67; TEMP 98.3
== END 2022-01-22 18:11 | disposition home or self-care (01) | DRG 157 ==
LOC: CSHERS 21:40 → CSHTELE 01-17 06:41
PROVIDERS: ADMIT Student in an Organized Health Care Education/Training Program; ATTEND Hospitalist
DX: K04.7 Periapical abscess without sinus (principal); J96.01 Acute respiratory failure with hypoxia; I82.409 Acute embolism and thrombosis of unspecified deep veins of unspecified lower extremity; N17.9 Acute kidney failure, unspecified; Z68.43 Body mass index [BMI] 50.0-59.9, adult; I24.8 Other forms of acute ischemic heart disease; I48.0 Paroxysmal atrial fibrillation; Z20.822 Contact with and (suspected) exposure to COVID-19; N40.0 Benign prostatic hyperplasia without lower urinary tract symptoms; G89.4 Chronic pain syndrome; I87.2 Venous insufficiency (chronic) (peripheral); I89.0 Lymphedema, not elsewhere classified; I12.9 Hypertensive chronic kidney disease with stage 1 through stage 4 chronic kidney disease, or unspecified chronic kidney disease; N18.2 Chronic kidney disease, stage 2 (mild); M54.9 Dorsalgia, unspecified; N20.0 Calculus of kidney; N32.81 Overactive bladder; E66.01 Morbid (severe) obesity due to excess calories; G47.33 Obstructive sleep apnea (adult) (pediatric); Z87.39 Personal history of other diseases of the musculoskeletal system and connective tissue
CPT/HCPCS: 36415; 70487; 71045; 71275; 74177; 80048; 80053; 80061; 80076; 81003; 81015; 82550; 82553; 82805; 83036; 83605; 83690; 83735; 83880; 84145; 84443; 84484; 85025; 85379; 85610; 85652; 85730; 86140; 86850; 86900; 86901; 87040; 87081; 87086; 87449; 87899; 93005; 93010; 93306; 93970; 94760; 96365; 96375; 96376; J0692; J1170; J1650; J2020; J2270; J2405; J2543; J3475; J3480; J3490; Q9967

== ENCOUNTER 2024-02-10 16:13 | Emergency (ER) | payer MEDICARE ==
[2024-02-10] MEDS ORDERED: Proparacaine 0.5% Opth 15 ML BOT ONE (17:27)
[2024-02-10 18:32] LABS: ALT (SGPT) 14 U/L (8-55); AST (SGOT) 15 U/L (5-34); Albumin 3.5 g/dL (3.4-4.8); Alkaline Phosphatase 84 U/L (40-110); Anion Gap 14 mmol/L (10-20); BUN (Urea Nitrogen) 33 mg/dL (8.4-25.7); Bilirubin, Total 0.3 mg/dL (0.2-1.2); Calc. Creatinine Clearance 0 mL/min (70-130); Calcium 9.4 mg/dL (7.8-10.44); Carbon Dioxide 20 mmol/L (23-31); Chloride 108 mmol/L (98-107); Estimated GFR 66; Globulin 2.5 g/dL (2.4-3.5); Glucose 105 mg/dL (80-115); Potassium 4.7 mmol/L (3.5-5.1); Sodium 137 mmol/L (136-145)
[2024-02-10 18:34] LABS: #Basophils 0.05 10x3/uL (0.0-0.2); #Eosinphils 0.38 10x3/uL (0.0-0.5); #Monocytes 0.48 10x3/uL (0.0-1.1); %Basophils 0.6 % (0.0-2.0); %Eosinophils 4.5 % (0.0-6.0); %Monocytes 5.7 % (0.0-10.0); %Neutrophils 70.8 % (40.0-75.0); Hematocrit 33.6 % (38.8-50.0); Mean Corpuscular HGB CONC 35.7 g/dL (32.0-36.0); Mean Corpuscular Hemoglobin 31.6 pg (27.0-33.0); Mean Corpuscular Volume 88.4 fl (81.2-95.1); Mean Platelet Volume 9.2 fl (7.4-10.4); Platelet Count 230 10x3/uL (150-450); RBC Distribution Width 12.6 % (11.5-14.5); White Blood Cell (WBC) Count 8.5 10x3/uL (3.5-10.5)
[2024-02-10 18:45] LABS: INR-International Normal Ratio 3.9; PTT 54.9 sec (22.0-33.0); Prothrombin Time 38.8 sec (9.5-12.1)
[2024-02-10] MEDS ORDERED: cefTRIAXone (ROCEPHIN) 2 GM VIAL ONE (18:52)
[2024-02-10] MEDS ORDERED: Sterile Water 10 ML ONE (18:53)
== END 2024-02-10 19:15 | disposition home or self-care (01) ==
LOC: CSHERS 16:13
DX: L03.116 Cellulitis of left lower limb (principal); I10 Essential (primary) hypertension
CPT/HCPCS: 36415; 80053; 83605; 85025; 85610; 85730; 86140; 87040; 96372; J0696

== ENCOUNTER 2024-05-10 19:23 | Inpatient (IN) | payer MEDICARE ==
[2024-05-10 20:07] LABS: #Basophils 0.03 10x3/uL (0.0-0.2); #Eosinphils 0.11 10x3/uL (0.0-0.5); #Neutrophils 15.65 10x3/uL (1.5-8.4); %Basophils 0.2 % (0.0-2.0); %Eosinophils 0.6 % (0.0-6.0); %Lymphocytes 6.1 % (18.0-47.0); %Monocytes 2.9 % (0.0-10.0); %Neutrophils 89.6 % (40.0-75.0); Hematocrit 30.5 % (38.8-50.0); Hemoglobin 10.1 g/dL (13.5-17.5); Mean Corpuscular HGB CONC 33.1 g/dL (32.0-36.0); Mean Corpuscular Hemoglobin 28.2 pg (27.0-33.0); Mean Corpuscular Volume 85.2 fL (81.2-95.1); Mean Platelet Volume 7.9 fL (7.4-10.4); Platelet Count 506 10x3/uL (150-450); RBC Distribution Width 12.1 % (11.5-14.5); Red Blood Cell (RBC) Count 3.58 10x6/uL (4.32-5.72); White Blood Cell (WBC) Count 17.5 10x3/uL (3.5-10.5)
[2024-05-10 20:20] LABS: ALT (SGPT) 11 U/L (8-55); AST (SGOT) 15 U/L (5-34); Albumin 2.5 g/dL (3.4-4.8); Alkaline Phosphatase 109 U/L (40-110); Anion Gap 12 mmol/L (10-20); BUN (Urea Nitrogen) 48 mg/dL (8.4-25.7); Bilirubin, Total 0.3 mg/dL (0.2-1.2); Calc. Creatinine Clearance 0 mL/min (70-130); Calcium 9.3 mg/dL (7.8-10.44); Carbon Dioxide 22 mmol/L (23-31); Chloride 101 mmol/L (98-107); Estimated GFR 34; Globulin 4.5 g/dL (2.4-3.5); Glucose 118 mg/dL (80-115); Potassium 5.3 mmol/L (3.5-5.1); Sodium 130 mmol/L (136-145)
[2024-05-10 20:31] LABS: PTT 92.1 sec (22.0-33.0)
[2024-05-10 20:36] LABS: Prothrombin Time Greater than 90.0 sec (9.5-12.1)
[2024-05-10] MEDS ORDERED: diphenhydrAMINE 50 MG/ML VIAL ONE (21:38)
[2024-05-10 21:39] LABS: PTT 92.6 sec (22.0-33.0); Prothrombin Time 89.6 sec (9.5-12.1)
[2024-05-10] MEDS ORDERED: Metoclopramide HCl 10 MG (2 mL) VIAL ONE (21:39)
[2024-05-10 21:48] LABS: INR-International Normal Ratio 9.5
[2024-05-10] MEDS ORDERED: Ondansetron ODT 4 MG TAB PO PRN (22:58)
[2024-05-10] MEDS ORDERED: traMADol HCl 50 MG TAB PO PRN ×2 (22:58)
[2024-05-10] MEDS ORDERED: Acetaminophen 650 MG Suppository PR PRN (22:58)
[2024-05-10] MEDS ORDERED: cefTRIAXone (ROCEPHIN) 2 GM VIAL ONE (23:32)
[2024-05-11 00:31] VITALS: BMI 30.7
[2024-05-11 00:47] LABS: SARS-CoV-2 E Target Negative; SARS-CoV-2 N2 Target Negative; SARS-CoV-2 NAA Rapid Test Not Detected (NotDetected); SARS-CoV-2 RdRP gene Negative
[2024-05-11] MEDS: Azithromycin 500 MG in Sodium Chloride 0.9% 250 ML 250 ML IVPB SCH (01:06)
[2024-05-11] MEDS: Sodium Chloride 0.9% 1,000 ML IV SCH (01:06)
[2024-05-11] MEDS: Linezolid 600 MG in Premix 1 BAG IVPB SCH ×2 (03:39→14:06)
[2024-05-11] MEDS: Acetaminophen 325 MG TAB PO PRN (08:32)
[2024-05-11] MEDS: Oxybutynin 5 MG TAB PO SCH (08:33)
[2024-05-11] MEDS: Famotidine 20 MG TAB PO SCH (08:33)
[2024-05-11] MEDS: Topiramate 100 MG TAB PO SCH (08:33)
[2024-05-11] MEDS: Gabapentin 400 MG CAP PO SCH (08:34)
[2024-05-11 09:27] LABS: Prothrombin Time 67.1 sec (9.5-12.1)
[2024-05-11 09:54] LABS: #Basophils 0.04 10x3/uL (0.0-0.2); #Eosinphils 0.25 10x3/uL (0.0-0.5); #Monocytes 0.74 10x3/uL (0.0-1.1); #Neutrophils 12.77 10x3/uL (1.5-8.4); %Basophils 0.3 % (0.0-2.0); %Eosinophils 1.6 % (0.0-6.0); %Lymphocytes 9.6 % (18.0-47.0); %Monocytes 4.8 % (0.0-10.0); %Neutrophils 83.1 % (40.0-75.0); Hematocrit 26.7 % (38.8-50.0); Hemoglobin 8.7 g/dL (13.5-17.5); Mean Corpuscular HGB CONC 32.6 g/dL (32.0-36.0); Mean Corpuscular Hemoglobin 28.1 pg (27.0-33.0); Mean Corpuscular Volume 86.1 fL (81.2-95.1); Mean Platelet Volume 8.3 fL (7.4-10.4); Platelet Count 512 10x3/uL (150-450); RBC Distribution Width 12.3 % (11.5-14.5); White Blood Cell (WBC) Count 15.4 10x3/uL (3.5-10.5)
[2024-05-11 10:08] LABS: ALT (SGPT) 13 U/L (8-55); AST (SGOT) 14 U/L (5-34); Albumin 2.2 g/dL (3.4-4.8); Alkaline Phosphatase 113 U/L (40-110); Anion Gap 15 mmol/L (10-20); BUN (Urea Nitrogen) 39 mg/dL (8.4-25.7); Bilirubin, Total 0.2 mg/dL (0.2-1.2); Calc. Creatinine Clearance 70 mL/min (70-130); Calcium 8.1 mg/dL (7.8-10.44); Carbon Dioxide 18 mmol/L (23-31); Chloride 108 mmol/L (98-107); Estimated GFR 57; Globulin 3.5 g/dL (2.4-3.5); Glucose 127 mg/dL (80-115); Potassium 4.5 mmol/L (3.5-5.1); Protein, Total 5.7 g/dL (5.8-8.1); Sodium 136 mmol/L (136-145)
[2024-05-11] MEDS: Morphine ER 15 MG TAB PO SCH ×2 (14:02→20:32)
[2024-05-11] MEDS ORDERED: Metoclopramide HCl 10 MG (2 mL) VIAL IVP SCH (14:45)
[2024-05-11] MEDS: Tamsulosin HCl 0.4 MG CAP PO SCH (20:32)
[2024-05-11] MEDS: tiZANidine HCl 4 MG TAB PO SCH (20:34)
[2024-05-11] MEDS: cefTRIAXone\\ROCEPHIN 2 GM in Sodium Chloride 0.9% 100 ML IVPB SCH (23:54)
[2024-05-12 04:58] LABS: #Basophils 0.06 10x3/uL (0.0-0.2); #Eosinphils 0.34 10x3/uL (0.0-0.5); #Monocytes 0.69 10x3/uL (0.0-1.1); #Neutrophils 6.98 10x3/uL (1.5-8.4); %Basophils 0.6 % (0.0-2.0); %Eosinophils 3.5 % (0.0-6.0); %Lymphocytes 16.6 % (18.0-47.0); %Monocytes 7.1 % (0.0-10.0); %Neutrophils 71.6 % (40.0-75.0); Hemoglobin 8.9 g/dL (13.5-17.5); Mean Corpuscular Hemoglobin 28.4 pg (27.0-33.0); Mean Corpuscular Volume 86.3 fL (81.2-95.1); Mean Platelet Volume 8.3 fL (7.4-10.4); Platelet Count 451 10x3/uL (150-450); RBC Distribution Width 12.4 % (11.5-14.5); Red Blood Cell (RBC) Count 3.13 10x6/uL (4.32-5.72); White Blood Cell (WBC) Count 9.8 10x3/uL (3.5-10.5)
[2024-05-12 05:16] LABS: INR-International Normal Ratio 3.5
[2024-05-12 05:17] LABS: Anion Gap 14 mmol/L (10-20); BUN (Urea Nitrogen) 27 mg/dL (8.4-25.7); Calc. Creatinine Clearance 98 mL/min (70-130); Calcium 8.8 mg/dL (7.8-10.44); Carbon Dioxide 21 mmol/L (23-31); Chloride 106 mmol/L (98-107); Estimated GFR 85; Glucose 103 mg/dL (80-115); Potassium 5.3 mmol/L (3.5-5.1); Sodium 136 mmol/L (136-145)
[2024-05-12] MEDS ORDERED: Non-Formulary Medication 1 EACH (Tadalafil [Tadalafil] 5 MG Tablet) PO SCH (09:00)
[2024-05-13 05:11] LABS: INR-International Normal Ratio 2.5
[2024-05-13] MEDS: Lisinopril 10 MG TAB PO SCH (08:20)
[2024-05-13 09:46] VITALS: BMI 30.7
[2024-05-13] MEDS: Torsemide 20 MG TAB PO SCH (09:55)
[2024-05-13 15:15] LABS: Legionella Urinary Ag Negative (Negative)
[2024-05-13 15:16] LABS: Strep pneumo Urine Ag NEGATIVE (NEGATIVE)
[2024-05-13] MEDS: Warfarin Sodium 5 MG TAB PO SCH (17:33)
[2024-05-13] MEDS: Ondansetron PF 4 MG/2 ML Vial IVP PRN (20:22)
[2024-05-13] MEDS: Pantoprazole 40 MG VIAL IVP SCH (20:26)
[2024-05-14 04:34] LABS: Prothrombin Time 20.6 sec (9.5-12.1)
[2024-05-14 04:41] LABS: #Basophils 0.06 10x3/uL (0.0-0.2); #Eosinphils 0.43 10x3/uL (0.0-0.5); #Monocytes 0.61 10x3/uL (0.0-1.1); #Neutrophils 6.74 10x3/uL (1.5-8.4); %Basophils 0.6 % (0.0-2.0); %Eosinophils 4.5 % (0.0-6.0); %Lymphocytes 18.2 % (18.0-47.0); %Monocytes 6.3 % (0.0-10.0); %Neutrophils 70.1 % (40.0-75.0); Hematocrit 28.8 % (38.8-50.0); Hemoglobin 9.6 g/dL (13.5-17.5); Mean Corpuscular HGB CONC 33.3 g/dL (32.0-36.0); Mean Corpuscular Hemoglobin 28.3 pg (27.0-33.0); Mean Platelet Volume 8.2 fL (7.4-10.4); Platelet Count 568 10x3/uL (150-450); RBC Distribution Width 12.1 % (11.5-14.5); Red Blood Cell (RBC) Count 3.39 10x6/uL (4.32-5.72); White Blood Cell (WBC) Count 9.6 10x3/uL (3.5-10.5)
[2024-05-14 08:12] LABS: Anion Gap 14 mmol/L (10-20); BUN (Urea Nitrogen) 19 mg/dL (8.4-25.7); Calc. Creatinine Clearance 92 mL/min (70-130); Carbon Dioxide 23 mmol/L (23-31); Chloride 103 mmol/L (98-107); Estimated GFR 78; Glucose 86 mg/dL (80-115); Potassium 4.4 mmol/L (3.5-5.1); Sodium 136 mmol/L (136-145)
[2024-05-14 08:21] VITALS: TEMP 98
[2024-05-14 12:12] VITALS: BP 99/58
[2024-05-14] MEDS ORDERED: Famotidine 20 MG TAB PO SCH (21:00)
== END 2024-05-14 13:24 | disposition home or self-care (01) | DRG 871 ==
LOC: CSHERS 19:23 → SUATTDRO 19:23 → CSHTELE 22:58
PROVIDERS: ADMIT Family Medicine; ATTEND Internal Medicine
DX: A41.9 Sepsis, unspecified organism (principal); J18.9 Pneumonia, unspecified organism; E87.1 Hypo-osmolality and hyponatremia; N17.9 Acute kidney failure, unspecified; I10 Essential (primary) hypertension; N40.0 Benign prostatic hyperplasia without lower urinary tract symptoms; M54.9 Dorsalgia, unspecified; G89.29 Other chronic pain; K80.20 Calculus of gallbladder without cholecystitis without obstruction; I48.0 Paroxysmal atrial fibrillation; R53.81 Other malaise; I73.9 Peripheral vascular disease, unspecified; Z98.890 Other specified postprocedural states; Z88.1 Allergy status to other antibiotic agents; Z88.8 Allergy status to other drugs, medicaments and biological substances; Z79.899 Other long term (current) drug therapy; Z79.01 Long term (current) use of anticoagulants; Z86.718 Personal history of other venous thrombosis and embolism
CPT/HCPCS: 36415; 70450; 71045; 74176; 80048; 80053; 84145; 85025; 85610; 85730; 86850; 86900; 86901; 87040; 87070; 87077; 87186; 87205; 87449; 87899; 94760; 94762; 97139; J0456; J0696; J1200; J2020; J2405; J2470; J2765; J7030; J7050; U0002

== ENCOUNTER 2024-07-02 11:39 | Emergency (ER) | payer MEDICARE ==
[2024-07-02] MEDS ORDERED: Morphine 4 MG/ML VIAL ONE ×2 (13:18→14:55)
[2024-07-02 13:35] LABS: #Basophils 0.04 10x3/uL (0.0-0.2); #Eosinophils 0.15 10x3/uL (0.0-0.5); #Monocytes 0.58 10x3/uL (0.0-1.1); %Basophils 0.5 % (0.0-2.0); %Eosinophils 1.8 % (0.0-6.0); %Lymphocytes 24.7 % (18.0-47.0); %Neutrophils 65.4 % (40.0-75.0); Hematocrit 28.7 % (38.8-50.0); Hemoglobin 9.4 g/dL (13.5-17.5); Mean Corpuscular HGB CONC 32.8 g/dL (32.0-36.0); Mean Corpuscular Hemoglobin 28.1 pg (27.0-33.0); Mean Corpuscular Volume 85.9 fL (81.2-95.1); Mean Platelet Volume 8.3 fL (7.4-10.4); Platelet Count 316 10x3/uL (150-450); Red Blood Cell (RBC) Count 3.34 10x6/uL (4.32-5.72); White Blood Cell (WBC) Count 8.3 10x3/uL (3.5-10.5)
[2024-07-02 13:47] LABS: ALT (SGPT) 9 U/L (8-55); AST (SGOT) 17 U/L (5-34); Albumin 3.3 g/dL (3.4-4.8); Alkaline Phosphatase 111 U/L (40-110); Anion Gap 13 mmol/L (10-20); BUN (Urea Nitrogen) 18 mg/dL (8.4-25.7); Bilirubin, Total 0.6 mg/dL (0.2-1.2); Calc. Creatinine Clearance 0 mL/min (70-130); Carbon Dioxide 22 mmol/L (23-31); Chloride 108 mmol/L (98-107); Estimated GFR 98; Globulin 3.6 g/dL (2.4-3.5); Glucose 91 mg/dL (80-115); Potassium 3.5 mmol/L (3.5-5.1); Protein, Total 6.9 g/dL (5.8-8.1); Sodium 139 mmol/L (136-145)
== END 2024-07-02 15:25 | disposition home or self-care (01) ==
LOC: CSHERS 11:39
DX: R60.0 Localized edema (principal); I10 Essential (primary) hypertension; Z55.0 Illiteracy and low-level literacy
CPT/HCPCS: 73610; 73620; 80053; 83605; 85025; 93971; 96374; 96376; 99284; J2272

== ENCOUNTER 2024-08-12 14:59 | Emergency (ER) | payer MEDICARE | END 2024-08-12 17:05 | disposition home or self-care (01) | LOC: CSHERS 14:59 | DX: M25.512 Pain in left shoulder (principal); I10 Essential (primary) hypertension; W01.0XXA Fall on same level from slipping, tripping and stumbling without subsequent striking against object, initial encounter; Z86.718 Personal history of other venous thrombosis and embolism; Z79.01 Long term (current) use of anticoagulants; Z79.899 Other long term (current) drug therapy | CPT/HCPCS: 99283 ==